=== PATIENT | female | born 1925 | race Two or more races ===

== ENCOUNTER 2017-02-28 17:55 | Inpatient (IN) | payer MEDICARE, MEDICAID ==
[~2017-02-28] VITALS: Ht 149.9 cm; Wt 64.5 kg
[~2017-02-28 17:55] MED LIST: ACET-868 PO; AMIN30LI33 PO; ASPI-605 PO; ATOR10TA PO; CALC500O PO; CYCL30DR EACHEYE; DEXT1DRO3 OP; ERGO50003 PO; FAMO-131 PO; GABA300C PO; HYDR-552 PO; HYDR100T27 PO; INSU100I4 SQ; INSU100V10 SQ; ISOS40TA16 PO; LACT10SO PO; LACT1CAP57 PO; LISI2.5T2 PO; MAGN200T5 PO; METO5TAB87 PO; PYRI100T2 PO; ROPI0.5T PO; SUVO5TAB PO; VIT1TABL46 PO
--- NOTE | 2017-02-28 17:57 | NUR ---
PT ENRIQUE TO ER BED 10. ORIGINALLY FOR LADI CARMONA. HERE FOR MEDICAL EVAL FOR SMOKE INHALATION. DR GENTILE PT. AAOX 1 BASELINE. PT STATES SHE IS HAVING LOWER BACK PAIN. PLACED ON MONITOR. NAD NOTED. AWAITING MD SALGUERO.
--- NOTE | 2017-02-28 18:30 | NUR ---
CALL FROM DR LILIYA HOPKINS,WANTS TO ADMIT PATIENT,DR MATHUR AWARE
--- NOTE | 2017-02-28 18:56 | NUR ---
DR MATHUR AT BEDSIDE FOR EVAL.
[2017-02-28] MEDS ORDERED: IV NS 0.9% 1,000 ML BAG IV ONE (19:00)
[2017-02-28 19:21] LABS: BASOPHILS # (AUTO) 0.2 /CMM (0.0-0.2); BASOPHILS % (AUTO) 3.4 % (0.0-2.0); EOSINOPHILS # (AUTO) 0.1 /CMM (0.0-0.7); EOSINOPHILS % (AUTO) 2.4 % (0.0-6.0); HEMATOCRIT 32 % (33-45); HEMOGLOBIN 10.2 g/dL (11.5-14.8); LYMPHOCYTES # (AUTO) 0.7 /CMM (0.8-4.8); LYMPHOCYTES % (AUTO) 13.6 % (20.0-44.0); MEAN CORPUSCULAR HEMOGLOBIN 32 PG (26.0-33.0); MEAN CORPUSCULAR HGB CONC 32 g/dl (31.0-36.0); MEAN CORPUSCULAR VOLUME 99 fL (82-100); MONOCYTES # (AUTO) 0.5 /CMM (0.1-1.30); MONOCYTES % (AUTO) 10.7 % (2.0-12.0); NEUTROPHILS # (AUTO) 3.6 /CMM (1.8-8.9); NEUTROPHILS % (AUTO) 69.9 % (43.0-81.0); PLATELET COUNT (AUTO) 172 /CMM (150-450); RDW COEFFICIENT OF VARIATION 21.1 (11.5-15.0); RED BLOOD CELL COUNT(AUTO) 3.22 MIL/uL (4.0-5.2); WHITE BLOOD COUNT (AUTO) 5.1 K/uL (4.3-11.0)
[2017-02-28 19:25] LABS: CALCIUM, SERUM 9.1 mg/dL (8.5-10.1); CARBON DIOXIDE 26 mmol/L (21-32); CHLORIDE 101 mmol/L (98-107); CREATININE 3.6 mg/dL (0.6-1.3); GLUCOSE 294 mg/dL (74-106); POTASSIUM 3.7 mmol/L (3.5-5.1); SODIUM SERUM 138 mmol/L (136-145); UREA NITROGEN, BLOOD 22 mg/dL (7-18)
[2017-02-28 19:27] LABS: INR 1.39 (0.87-1.13); PROTHROMBIN TIME 14.5 SECS (9.5-12.7)
[2017-02-28 19:32] LABS: TROPONIN I 0.031 ng/mL (0.00-0.056)
[2017-02-28 21:00] VITALS: BP 125/91
--- NOTE | 2017-02-28 21:01 | NUR ---
REPORT GIVEN TO RUDDY. PT AWAITING TRANSFER TO FLOOR.
[2017-02-28 21:30] VITALS: BP 125/91
--- NOTE | 2017-02-28 21:30 | NUR ---
MS COMPUTER SYSTEMS ENGINEER INITIAL NOTES ADMIT PT FROM ER VIA [facility] ACCOMPANIED BY ER NURSE. PT BELGIAN AND UNDERSTOOD SIMPLE FAROESE. RESPIRATION EVEN AND NON-LABORED.ORIENTED WHERE SHE AT AND HOW TO USED THE CALL LIGHT SYSTEM. HEPLOCK ONLY ON HER RIGHT FOREARM GAUGE 18 PATENT AND INTACT, AND AV SHUNT ON HER LEFT UPPER ARM. SKIN WARM AND DRY TO TOUCH NOTED, SOME SCABS ON HER LOWER LEGS , BRUISE ON HER RIGHT ARM AND REDNESS ON SACRUM AREA. DENIES ANY PAIN OR ANY DISCOMFORT. KEPT HER WARM AND COMFORTABLE AT ALL TIMES. BED ALARM SET FOR SAFETY AND SIDE RAILS X2 UP AND BED IN LOW AND LOCK IN POSITION. PLACE CALL LIGHT AT REACH.
[2017-02-28] MEDS ORDERED: ALBUTEROL FS 2.5 MG/3 ML VIAL.NEB NEB PRN (23:00)
[2017-02-28] MEDS ORDERED: ACETAMINOPHEN 325 MG TABLET PO PRN ×2 (23:00)
[2017-02-28] MEDS ORDERED: TEMAZEPAM 15 MG CAPSULE PO PRN (23:00)
[2017-02-28] MEDS ORDERED: ERGOCALCIFEROL (VITAMIN D 2) 50,000 UNIT CAPSULE PO SCH (23:00)
[2017-02-28] MEDS ORDERED: Z GUARD REMEDY 2 OZ OINT TP PRN (23:00)
[2017-02-28 23:07] LABS: ALBUMIN 3.1 g/dL (3.4-5.0); BILIRUBIN,DIRECT 0.2 mg/dL (0.0-0.2); BILIRUBIN,TOTAL 0.6 mg/dL (0.2-1.0); TOTAL PROTEIN, SERUM 7.5 g/dL (6.4-8.2)
[2017-02-28] MEDS ORDERED: ropiniROLE 0.5 MG TABLET ONE (23:58)
[2017-02-28] MEDS ORDERED: GABAPENTIN 300 MG CAPSULE ONE (23:59)
[2017-03-01] VITALS: BP 137/69
[2017-03-01] MEDS: GABAPENTIN 300 MG CAPSULE PO SCH ×2 (00:01→21:43)
[2017-03-01] MEDS: ropiniROLE 0.5 MG TABLET PO SCH ×2 (00:01→21:43)
--- NOTE | 2017-03-01 00:01 | NUR ---
MS TRAFFIC CONTROL OPERATOR NOTES ROUTINE MEDS GIVEN LIZABETH PO AND TOLERATED WELL NO ASPIRATION NOTE. ABLE TO EAT BUT NEEDS ASSISTANCE. REPOSITION FOR COMFORT, WILL CONTINUE TO MONITOR.PLACE CALL LIGHT AT REACH.
--- NOTE | 2017-03-01 02:44 | NUR ---
SANDER SETTER/NOTES' CHECKED PT AND SEEN SLEEPING COMFORTABLY IN BED WITHOUT ANY ACUTE DISTRESS NOTED, WILL CONTINUE MONITORING.
[2017-03-01 04:00] VITALS: BP 118/54
--- NOTE | 2017-03-01 07:10 | NUR ---
RN INITIAL NOTES: REC'D PT AWAKE ON BED, NOT IN ANY DISTRESS, A/O X 2 W/ CONFUSION, DENIES ANY PAIN/DISCOMFORT. ON ROOM AIR, NO SOB. ON TELEMONITOR, SR W/ BBB. HAS RFA G20, SL, FLUSHED, PATENT & INTACT W/ NO S/SX OF INFECTION/INFILTRATION NOTED. HAS AV SHUNT ON HORACIO, +THRILL/BRUIT. PROVIDED COMFORT & SAFETY MEASURES. BED KEPT LOW & IN LOCKED POS. CALL LIGHT PLACED W/IN REACH. WILL CONTINUE TO MONITOR AND ATTEND PT NEEDS.
--- NOTE | 2017-03-01 07:28 | NUR ---
TELE CONTACT ASSEMBLER CLOSING NOTES PT REMAINS RESTING AFTER MORNING CARE DONE. SLEPT WELL AND STABLE LIZABETH THE NIGHT. REPOSITION HER FOR COMFORT. TELE SR WITH BBB HEART RATE 82 PER MONITOR. ON SEMI FOWLERS POSITION WITH SIDE RAILS X3 UP AND BED ALARM SET FOR SAFETY. ENDORSE TO AM NURSE FOR CONTINUITY OF CARE. PLACE CALL LIGHT AT REACH.
[2017-03-01] MEDS ORDERED: DEXTROSE 50%-WATER 50 ML DISP.SYRIN IV PRN (07:30)
[2017-03-01 07:35] LABS: BASOPHILS % (AUTO) 0.3 % (0.0-2.0); EOSINOPHILS # (AUTO) 0.1 /CMM (0.0-0.7); EOSINOPHILS % (AUTO) 2.3 % (0.0-6.0); HEMATOCRIT 34 % (33-45); HEMOGLOBIN 11.2 g/dL (11.5-14.8); LYMPHOCYTES # (AUTO) 0.7 /CMM (0.8-4.8); LYMPHOCYTES % (AUTO) 13.5 % (20.0-44.0); MEAN CORPUSCULAR HEMOGLOBIN 33 PG (26.0-33.0); MEAN CORPUSCULAR HGB CONC 33 g/dl (31.0-36.0); MEAN CORPUSCULAR VOLUME 101 fL (82-100); MONOCYTES # (AUTO) 0.5 /CMM (0.1-1.30); MONOCYTES % (AUTO) 9.2 % (2.0-12.0); NEUTROPHILS # (AUTO) 3.9 /CMM (1.8-8.9); NEUTROPHILS % (AUTO) 74.7 % (43.0-81.0); PLATELET COUNT (AUTO) 165 /CMM (150-450); RDW COEFFICIENT OF VARIATION 22.2 (11.5-15.0); RED BLOOD CELL COUNT(AUTO) 3.41 MIL/uL (4.0-5.2); WHITE BLOOD COUNT (AUTO) 5.2 K/uL (4.3-11.0)
[2017-03-01 07:42] LABS: ALANINE AMINOTRANSFERASE 24 U/L (12-78); ALBUMIN 2.9 g/dL (3.4-5.0); ALKALINE PHOSPHATASE 135 U/L (46-116); ASPARTATE AMINOTRANSFERASE 26 U/L (15-37); BILIRUBIN,TOTAL 0.7 mg/dL (0.2-1.0); CARBON DIOXIDE 27 mmol/L (21-32); CHLORIDE 105 mmol/L (98-107); CREATININE 3.9 mg/dL (0.6-1.3); GLUCOSE 270 mg/dL (74-106); PHOSPHORUS 3.5 mg/dL (2.5-4.9); SODIUM SERUM 142 mmol/L (136-145); TOTAL PROTEIN, SERUM 7.1 g/dL (6.4-8.2); UREA NITROGEN, BLOOD 25 mg/dL (7-18)
[2017-03-01 07:45] LABS: CHOLESTEROL 75 mg/dL (<200); HDL CHOLESTEROL 38 mg/dL (40-60); LDL 27 mg/dL (0-99); THYROID STIMULATING HORMONE 2.127 uIU/mL (0.358-3.74); TRIGLYCERIDES 68 mg/dL (30-150)
[2017-03-01 07:47] LABS: IRON, SERUM 34 ug/dl (50-175); TOTAL IRON BINDING CAPACITY 151 ug/dl (250-450)
[2017-03-01 08:00] VITALS: BP 130/61
[2017-03-01] MEDS: BLOOD SUGAR DIAGNOSTIC 1 EACH STRIP VI SCH ×4 (08:24→22:26)
[2017-03-01] MEDS: METOCLOPRAMIDE HCL 10 MG TABLET PO SCH ×3 (08:27→16:17)
[2017-03-01] MEDS: VIT B CMPLX 3/FA/VIT C/BIOTIN 1 TAB TABLET PO SCH (08:28)
[2017-03-01] MEDS: FAMOTIDINE (20 MG) 20 MG TABLET PO SCH (08:28)
[2017-03-01] MEDS: MAGNESIUM OXIDE 400 MG TABLET PO SCH (08:28)
[2017-03-01] MEDS: ATORVASTATIN 10 MG TABLET PO SCH (08:28)
[2017-03-01] MEDS: PYRIDOXINE HCL 50 MG TABLET PO SCH (08:29)
[2017-03-01] MEDS: LACTOBACILLUS RHAMNOSUS GG 1 EACH CAP.SPRINK PO SCH ×2 (08:29→16:17)
[2017-03-01] MEDS: ASPIRIN EC 81 MG TABLET.DR PO SCH (08:29)
[2017-03-01] MEDS: ISOSORBIDE DINITRATE (20MG) 20 MG TABLET PO SCH ×2 (08:29→16:25)
[2017-03-01] MEDS ORDERED: Medication Not On Formulary EA (Cyclosporine (Restasis) 1 DROP) EACHEYE SCH (09:00)
[2017-03-01] MEDS: POLYVINYL ALCOHOL 15 ML BOTTLE OP SCH ×5 (09:00→21:20)
[2017-03-01] MEDS: CALCIUM CARBONATE 1,250 MG/5 ML UDC PO SCH (09:19)
[2017-03-01] MEDS: INSULIN REGULAR, HUMAN 100 UNIT/ML 3 ML VIAL SQ PRN ×3 (09:25→17:04)
[2017-03-01] MEDS: INSULIN ASPART HUMALOG/NOVOLOG 100 UNIT/ML CARTRIDGE SQ SCH ×3 (09:34→17:03)
--- NOTE | 2017-03-01 13:45 | NUR ---
RN NOTES: PT TOLERATED HD W/ 1.5L OUTPUT. BP 127/63.
[2017-03-01 16:00] VITALS: BP_SYST 108; BP_SYST 121; BP_DIAS 51; BP_DIAS 61
--- NOTE | 2017-03-01 18:37 | NUR ---
RN CLOSING NOTES: NO ACUTE CHANGES NOTED W/IN SHIFT. PT TOLERATED ROOM AIR, NO SOB. RFA G20, SL, KEPT PATENT & INTACT W/ NO S/SX OF INFECTION/INFILTRATION NOTED. AV SHUNT ON HORACIO, STILL W/ +THRILL/BRUIT, NO BLEEDING NOTED. KEPT WELL RESTED. NEEDS ATTENDED. BED KEPT LOW & IN LOCKED POS. CALL LIGHT PLACED W/IN REACH. WILL ENDORSE TO PM RN FOR LENY.
[2017-03-01 20:00] VITALS: BP 122/60
[2017-03-01] MEDS: PROSOURCE / PROSTAT (PYXIS) 30 ML UDC PO SCH (21:43)
--- NOTE | 2017-03-01 21:44 | NUR ---
ms/rn notes patient neurontin 300mg pulled out from [facility], but no med found, pulled in the other omnicelle and got the last one. will inform charge nurse
[2017-03-01] MEDS: INSULIN DETEMIR 100 UNIT/ML CARTRIDGE SQ SCH (22:30)
[2017-03-01] MEDS: *INSULIN REGULAR(HUMULIN R)HUM 100 UNIT/ML VIAL SQ PRN (22:32)
[2017-03-01] MEDS: HYDROCODONE/APAP 5/325MG 1 EACH TABLET PO PRN (22:35)
--- NOTE | 2017-03-01 22:35 | NUR ---
ms/rn notes patient observed moaning and grimace and reported pain/dolor, administer as needed norco 5-325mg po by mouth will check effectiveness.
[2017-03-02] VITALS: BP 122/60
[2017-03-02 00:22] VITALS: BP 122/60
[2017-03-02] MEDS: BLOOD SUGAR DIAGNOSTIC 1 EACH STRIP VI SCH ×4 (06:23→21:43)
--- NOTE | 2017-03-02 06:40 | NUR ---
PATIENT IN BED, ALERTX2, REQUIRE REORIENTATION, MONITORING FOR PAIN, GIVEN PAIN MEDICATION AND ABLE TO REST/SLEEP DURING THE NIGHT, TURNED AND REPOSITION, APPLIED BARRIER CREAM, RESPIRATION EVEN AND UNLABORED, PROVIDE FLUIDS, MONITORING HYPO/HYPER GLYCEMIA. WILL ENDORSE TO AM RN FOR LENY.
[2017-03-02] MEDS: INSULIN ASPART HUMALOG/NOVOLOG 100 UNIT/ML CARTRIDGE SQ SCH ×3 (07:00→18:00)
--- NOTE | 2017-03-02 07:00 | NUR ---
RN NOTES: PATIENT RESTING IN BED. NONLABORED BREATHING NOTED ON ROOM AIR. NO COUGHING NOTED. NO SIGNS OF DISTRESS. NO FACIAL GRIMACING NOTED. IV SITE PATENT AND INTACT. BED IN LOWEST LOCKED POSITION.CALL LIGHT WITHIN REACH. WILL CONTINUE TO MONITOR
[2017-03-02 08:00] VITALS: BP_SYST 123; BP_DIAS 50; BP_DIAS 55
[2017-03-02] MEDS: ISOSORBIDE DINITRATE (20MG) 20 MG TABLET PO SCH ×2 (09:00→17:00)
[2017-03-02] MEDS: LACTULOSE 10 G/15 ML UDC (PYXIS) PO SCH (09:23)
[2017-03-02] MEDS: LACTOBACILLUS RHAMNOSUS GG 1 EACH CAP.SPRINK PO SCH ×2 (09:26→16:24)
[2017-03-02] MEDS: CHOLECALCIFEROL 1,000 UNIT TABLET (VIT D3) PO SCH (09:27)
[2017-03-02] MEDS: FAMOTIDINE (20 MG) 20 MG TABLET PO SCH (09:28)
[2017-03-02] MEDS: ATORVASTATIN 10 MG TABLET PO SCH (09:28)
[2017-03-02] MEDS: PYRIDOXINE HCL 50 MG TABLET PO SCH (09:29)
[2017-03-02] MEDS: ASPIRIN EC 81 MG TABLET.DR PO SCH (09:29)
[2017-03-02] MEDS: METOCLOPRAMIDE HCL 10 MG TABLET PO SCH ×3 (09:30→16:26)
[2017-03-02] MEDS: MAGNESIUM OXIDE 400 MG TABLET PO SCH (09:30)
[2017-03-02] MEDS: VIT B CMPLX 3/FA/VIT C/BIOTIN 1 TAB TABLET PO SCH (09:30)
[2017-03-02] MEDS: CARVEDILOL 3.125 MG TABLET PO SCH ×2 (09:30→20:59)
[2017-03-02] MEDS: CALCIUM CARBONATE 1,250 MG/5 ML UDC PO SCH (09:31)
[2017-03-02] MEDS: POLYVINYL ALCOHOL 15 ML BOTTLE OP SCH ×4 (09:33→20:56)
[2017-03-02 16:00] VITALS: BP 128/54
--- NOTE | 2017-03-02 19:10 | NUR ---
RN CLOSING NOTES: PATIENT RESTING IN BED. PATIENT AOX2. NONLABORED BREATHING ON ROOM AIR. NO SIGNS OF DISTRESS NOTED. IV SITE PATENT AND INTACT. PATIENT JUST FINISHED DIALYSIS WITH 2 L OUTPUT OUT. PATIENT REFUSES TO HAVE BP CHECKED AGAIN. BP ASSESSED BY HD TECH NOTED TO BE 110/41. PATIENT DENIES DIZZINESS. PATIENT ATE DINNER. DURING SHIFT, PATIENT TURNED AND REPOSITIONED EVERY 2 HOURS. PATIENT KEPT CLEAN AND DRY DURING SHIFT. BED IN LOWEST LOCKED POSITION. CALL LIGHT WITHIN REACH. ENDORSED TO NEXT SHIFT
--- NOTE | 2017-03-02 19:20 | NUR ---
MS/LINE CONSTRUCTION SUPERINTENDENT; RECEIVED PT'S REPORTS FROM THE DAY SHIFT RN FOR CONTINUITY OF CARE. AT THIS TIME PT IN BED WITH HOB AT 45 DEGREES. BREATHING NON LABORED. NO S/S OF DISTRESS. HL ON RFA INTACT. AV SHUNT ON HORACIO WITH DRESSING ON NO BLEEDING NOTED. PT'S GRANDSON DAYNA AT THE BEDSIDE VISITED. PT DENIES PAIN. NO COUGHING NOTED AT THIS TIME. PT INSTRUCTED TO CALL FOR HELP AND CALL LIGHT WITHIN REACH. BED ON LOWER POSITION AND LOCKED FOR SAFETY. SIDE RAILS UPPER PART OF BED ARE UP FOR SAFETY. WILL CONTINUE TO MONITOR.
--- NOTE | 2017-03-02 19:30 | NUR ---
MS/SENIOR SOUS CHEF; RECEIVED PT'S REPORTS FROM THE DAY SHIFT RN FOR CONTINUITY OF CARE. AT THIS TIME PT IN BED AWAKE, ALERT AND ORIENTED. HOB AT 45 DEGREES. BREATHING NON LABORED.WITH O2 2L NC ON. HL ON RT HAND 2ND FINGER INTACT. PT INSTRUCTED TO CALL FOR WHEN SHE GOES TO THE [facility] AND ANYTHING ELSE. SHE SAID OK. BED ON LOWER POSITION AND LOCKED FOR SAFETY. UPPER PART OF BED SIDE RAILS ARE UP FOR SAFETY. CALL LIGHT WITHIN REACH. WILL CONTINUE TO MONITOR.
[2017-03-02 20:00] VITALS: BP 102/49
[2017-03-02] MEDS: GABAPENTIN 300 MG CAPSULE PO SCH (21:37)
[2017-03-02] MEDS: PROSOURCE / PROSTAT (PYXIS) 30 ML UDC PO SCH (21:37)
[2017-03-02] MEDS: ropiniROLE 0.5 MG TABLET PO SCH (21:38)
[2017-03-02] MEDS: *INSULIN REGULAR(HUMULIN R)HUM 100 UNIT/ML VIAL SQ PRN (21:53)
--- NOTE | 2017-03-02 22:00 | NUR ---
MS/ORTHOPAEDIC GENERAL; BS 209 COVERED WITH REGULAR INSULIN 4 UNITS SQ. PT WAS GIVEN SNACKS , APPLE SAUCE, PUDDING AND APPLE JUICE PT ATE IT AND DRUNK SOME APPLE JUICE. WILL CONTINUE TO MONITOR.
[2017-03-02] MEDS: INSULIN DETEMIR 100 UNIT/ML CARTRIDGE SQ SCH (22:07)
--- NOTE | 2017-03-03 06:50 | NUR ---
MS/RECREATIONAL THERAPY TECHNICIAN; BS 258 COVERAGE GIVEN REGULAR INSULIN 9 UNITS.
[2017-03-03] MEDS: BLOOD SUGAR DIAGNOSTIC 1 EACH STRIP VI SCH ×4 (06:52→23:08)
[2017-03-03] MEDS: INSULIN REGULAR, HUMAN 100 UNIT/ML 3 ML VIAL SQ PRN (06:59)
[2017-03-03] MEDS: INSULIN ASPART HUMALOG/NOVOLOG 100 UNIT/ML CARTRIDGE SQ SCH ×3 (07:00→17:36)
--- NOTE | 2017-03-03 07:00 | NUR ---
MS/WILDLIFE TECHNICIAN; NOVOLOG 8 UNITS NOT GIVEN WILL ENDORSE TO THE DAY SHIFT RN . SLEPT FAIRLY. DENIES PAIN. WILL ENDORSE TO THE DAY SHIFT RN FOR CONTINUITY OF CARE.
[2017-03-03 07:02] LABS: BASOPHILS % (AUTO) 0.4 % (0.0-2.0); EOSINOPHILS # (AUTO) 0.2 /CMM (0.0-0.7); EOSINOPHILS % (AUTO) 3.1 % (0.0-6.0); HEMATOCRIT 36 % (33-45); HEMOGLOBIN 11.4 g/dL (11.5-14.8); LYMPHOCYTES # (AUTO) 0.8 /CMM (0.8-4.8); LYMPHOCYTES % (AUTO) 14.3 % (20.0-44.0); MEAN CORPUSCULAR HEMOGLOBIN 33 PG (26.0-33.0); MEAN CORPUSCULAR HGB CONC 32 g/dl (31.0-36.0); MEAN CORPUSCULAR VOLUME 102 fL (82-100); MONOCYTES # (AUTO) 0.6 /CMM (0.1-1.30); MONOCYTES % (AUTO) 11.1 % (2.0-12.0); NEUTROPHILS # (AUTO) 3.9 /CMM (1.8-8.9); NEUTROPHILS % (AUTO) 71.1 % (43.0-81.0); PLATELET COUNT (AUTO) 147 /CMM (150-450); RDW COEFFICIENT OF VARIATION 23.4 (11.5-15.0); WHITE BLOOD COUNT (AUTO) 5.6 K/uL (4.3-11.0)
[2017-03-03 07:17] LABS: CALCIUM, SERUM 8.7 mg/dL (8.5-10.1); CARBON DIOXIDE 31 mmol/L (21-32); CHLORIDE 99 mmol/L (98-107); CREATININE 3.4 mg/dL (0.6-1.3); GLUCOSE 278 mg/dL (74-106); POTASSIUM 4.1 mmol/L (3.5-5.1); SODIUM SERUM 137 mmol/L (136-145); UREA NITROGEN, BLOOD 21 mg/dL (7-18)
--- NOTE | 2017-03-03 07:54 | NUR ---
RN NOTES: PATIENT RESTING IN BED. PATIENT ALERT ORIENTED X2 WITH PERIODS OF CONFUSION. NONLABORED BREATHING NOTED ON ROOM AIR. NO SIGNS OF DISTRESS. NO FACIAL GRIMACING NOTED. BED IN LOWEST LOCKED POSITION. CALL LIGHT WITHIN REACH. WILL CONTINUE TO MONITOR
[2017-03-03 08:00] VITALS: BP 126/60
[2017-03-03] MEDS: POLYVINYL ALCOHOL 15 ML BOTTLE OP SCH ×4 (08:10→21:46)
[2017-03-03] MEDS: CALCIUM CARBONATE 1,250 MG/5 ML UDC PO SCH (08:15)
[2017-03-03] MEDS: CHOLECALCIFEROL 1,000 UNIT TABLET (VIT D3) PO SCH (08:15)
[2017-03-03] MEDS: LACTULOSE 10 G/15 ML UDC (PYXIS) PO SCH (08:15)
[2017-03-03] MEDS: VIT B CMPLX 3/FA/VIT C/BIOTIN 1 TAB TABLET PO SCH (08:15)
[2017-03-03] MEDS: LACTOBACILLUS RHAMNOSUS GG 1 EACH CAP.SPRINK PO SCH ×2 (08:15→16:35)
[2017-03-03] MEDS: MAGNESIUM OXIDE 400 MG TABLET PO SCH (08:16)
[2017-03-03] MEDS: METOCLOPRAMIDE HCL 10 MG TABLET PO SCH ×3 (08:18→16:35)
[2017-03-03] MEDS: ASPIRIN EC 81 MG TABLET.DR PO SCH (08:19)
[2017-03-03] MEDS: FAMOTIDINE (20 MG) 20 MG TABLET PO SCH (08:19)
[2017-03-03] MEDS: PYRIDOXINE HCL 50 MG TABLET PO SCH (08:19)
[2017-03-03] MEDS: ATORVASTATIN 10 MG TABLET PO SCH (08:19)
[2017-03-03] MEDS: CARVEDILOL 3.125 MG TABLET PO SCH ×2 (08:20→21:00)
[2017-03-03] MEDS: ISOSORBIDE DINITRATE (20MG) 20 MG TABLET PO SCH ×2 (09:00→16:36)
[2017-03-03] MEDS: HYDROCODONE/APAP 5/325MG 1 EACH TABLET PO PRN (11:59)
[2017-03-03 16:00] VITALS: BP 106/65
--- NOTE | 2017-03-03 17:37 | NUR ---
RN NOTES: BLOOD SUGAR ASSESSED AND NOTED TO BE 129. PATIENT REFUSING INSULIN SCHEDULED STATING "NO QUIERO" BENEFITS AND RISKS EXPLAINED TO PATIENT. PATIENT STILL REFUSING
--- NOTE | 2017-03-03 19:15 | NUR ---
RN NOTES PATIENT RESTING IN BED. NONLABORED BREATHING NOTED ON ROOM AIR. NO SIGNS OF DISTRESS NOTED. PATIENT DENIES PAIN AT THE MOMENT. NO FACIAL GRIMACING NOTED. IV SITE PATENT AND INTACT.BED IN LOWEST LOCKED POSITION. CALL LIGHT WITHIN REACH. PATIENT SCHEDULED TO BE DISCHARGED TODAY. DISCHARGE EXISTCARE DONE. EDUCATED PATIENT WITH IT. PATIENT STILL AO2 WITH PERIODS OF CONFUSION. PATIENT NEEDS REINFORCEMENT FAMILY MEMBERS ON FACESHEET CONTACTED HOWEVER UNABLE TO GET HOLD OF THEM. UNABLE TO GET HOLD OF [facility] STAFF TO GIVE REPORT WELL. PATENT REFUSED SKIN PICTURES TO BE TAKEN. DURING SHIFT, PATIENT KEPT CLEAN AND DRY. TURNED AND REPOSITIONED EVERY 2 HOURS
--- NOTE | 2017-03-03 19:20 | NUR ---
MS/RN OPENING NOTES PT RECEIVED RESTING IN BED. BRAZILIAN SPEAKING, A/OX2. ON ROOM AIR, BREATHING EVEN AND UNLABORED. NO APPARENT SIGNS OF DISTRESS NOTED. NO SOB OR PAIN. IV TO RFA PATENT AND INTACT. BED IN LOW/LOCKED POSITION WITH SIDE RAILS UPX3, CALL LIGHT IN REACH AND BED ALARM ON FOR SAFETY. PT TO BE DISCHARGED TONIGHT. WILL CONTINUE TO MONITOR
[2017-03-03 20:00] VITALS: BP 110/51
[2017-03-03 21:00] VITALS: BP 110/51
[2017-03-03] MEDS: INSULIN DETEMIR 100 UNIT/ML CARTRIDGE SQ SCH (22:00)
[2017-03-03] MEDS: ropiniROLE 0.5 MG TABLET PO SCH (23:08)
[2017-03-03] MEDS: GABAPENTIN 300 MG CAPSULE PO SCH (23:08)
[2017-03-03] MEDS: PROSOURCE / PROSTAT (PYXIS) 30 ML UDC PO SCH (23:08)
--- NOTE | 2017-03-03 23:28 | NUR ---
MS/RN NOTES BLOOD SCITH=564, NO INSULIN COVERAGE DUE TO PT NOT WANTING TO EAT. REFUSING SNACK AT THIS TIME.
--- NOTE | 2017-03-04 06:10 | NUR ---
MS/RN CLOSING NOTES EMT ARRIVED TO DISCHARGE PT BACK TO [facility]. IV AND ID BAND REMOVED. BELONGINGS AND DISCHARGE PAPERWORK SENT WITH PT. PT DISCHARGED IN STABLE CONDITION VIA [facility].
== END 2017-03-04 06:10 | DRG 917 ==
LOC: ER 17:57 → TRANSITION 20:02 → MED 21:02 → TELE 03-01 01:57 → MED 03-01 08:52
PROVIDERS: ADMIT Internal Medicine; ATTEND Internal Medicine
PROC: 5A1D70Z Performance of Urinary Filtration, Intermittent, Less than 6 Hours Per Day (ICD-10-PCS; principal; 2017-03-01)
DX: T59.811A Toxic effect of smoke, accidental (unintentional), initial encounter (principal); J96.00 Acute respiratory failure, unspecified whether with hypoxia or hypercapnia; I13.2 Hypertensive heart and chronic kidney disease with heart failure and with stage 5 chronic kidney disease, or end stage renal disease; J90 Pleural effusion, not elsewhere classified; E44.0 Moderate protein-calorie malnutrition; D68.9 Coagulation defect, unspecified; E11.22 Type 2 diabetes mellitus with diabetic chronic kidney disease; E11.65 Type 2 diabetes mellitus with hyperglycemia; N18.6 End stage renal disease; I50.33 Acute on chronic diastolic (congestive) heart failure; J98.11 Atelectasis; R18.8 Other ascites; G20 Parkinson's disease; D64.9 Anemia, unspecified; F32.9 Major depressive disorder, single episode, unspecified; F41.9 Anxiety disorder, unspecified; J44.9 Chronic obstructive pulmonary disease, unspecified; K74.60 Unspecified cirrhosis of liver; Z99.2 Dependence on renal dialysis; Z90.49 Acquired absence of other specified parts of digestive tract; Z79.4 Long term (current) use of insulin; K21.9 Gastro-esophageal reflux disease without esophagitis; R59.0 Localized enlarged lymph nodes; E88.09 Other disorders of plasma-protein metabolism, not elsewhere classified; I34.0 Nonrheumatic mitral (valve) insufficiency; E83.9 Disorder of mineral metabolism, unspecified; F03.90 Unspecified dementia, unspecified severity, without behavioral disturbance, psychotic disturbance, mood disturbance, and anxiety; Y92.129 Unspecified place in nursing home as the place of occurrence of the external cause; I44.7 Left bundle-branch block, unspecified
CPT/HCPCS: 36415; 71010-TC; 71250-TC; 76770-TC; 80048-TC; 80053-TC; 80061-TC; 80076-TC; 82272-TC; 82306; 82728-TC; 82962-TC; 83540-TC; 83735-TC; 83880; 84100-TC; 84439-TC; 84443-TC; 84484-TC; 85025-TC; 85730-TC; 87081-TC; 90935-TC; 93307-TC; A4606; J1815; J7030; J8597; Z7610